=== PATIENT | male | born 1980 | race Two or more races ===

== ENCOUNTER 2022-04-05 19:59 | Emergency (ER) | payer OTHER ==
[~2022-04-05] VITALS: Ht 175.3 cm; Wt 79.5 kg
[2022-04-05] MEDS ORDERED: ALBU8HFA IH (20:23)
[2022-04-05 20:24] VITALS: BP 154/102
[2022-04-05 20:39] LABS: BASOPHILS % (AUTO) 0.5 % (0.0-2.0); EOSINOPHILS % (AUTO) 1.9 % (1.0-6.0); HEMATOCRIT 47.9 % (41-53); HEMOGLOBIN 16.4 g/dL (13.5-17.5); LYMPHOCYTES # (AUTO) 1.8 K/uL (1.0-4.8); LYMPHOCYTES % (AUTO) 26.6 % (22.0-44.0); MEAN CORPUSCULAR HEMOGLOBIN 30.5 pg (26.0-34.0); MEAN CORPUSCULAR HGB CONC 34.2 G/dL (31.0-37.0); MEAN CORPUSCULAR VOLUME 89 fL (80-100); MONOCYTES # (AUTO) 0.6 K/uL (0.1-1.0); MONOCYTES % (AUTO) 8.2 % (2.0-9.0); NEUTROPHILS # (AUTO) 4.3 K/uL (1.8-7.7); NEUTROPHILS % (AUTO) 62.8 % (40.0-70.0); PLATELET COUNT (AUTO) 369 K/uL (150-450); RED BLOOD CELL COUNT(AUTO) 5.37 MIL/uL (4.50-5.90); RED CELL DISTRIBUTION WIDTH 12.2 % (11.5-14.5)
[2022-04-05 20:48] LABS: ANION GAP 4 mmol/L (8-16); CALCIUM, TOTAL 10.1 mg/dL (8.8-10.5); CARBON DIOXIDE 29 mmol/L (22-29); CHLORIDE 102 mmol/L (98-107); CREATININE 1.02 mg/dL (0.60-1.30); GLUCOSE,RANDOM 109 mg/dL (70-110); POTASSIUM 4.8 mmol/L (3.5-5.1); SODIUM SERUM 135 mmol/L (136-145); UREA NITROGEN, BLOOD 16 mg/dL (7-18)
[2022-04-05 20:53] LABS: GLOMERULAR FILTR. RATE CALC > 60 mL/min (>60)
[2022-04-05 20:54] LABS: BILIRUBIN,TOTAL 0.5 mg/dL (0.1-1.0)
[2022-04-05 20:55] LABS: ALANINE AMINOTRANSFERASE 13 U/L (12-78); ALBUMIN 4.5 g/dL (3.4-5.0); ALKALINE PHOSPHATASE 143 U/L (46-116); ASPARTATE AMINOTRANSFERASE 17 U/L (15-37)
== END 2022-04-05 22:23 | disposition home or self-care (01) ==
LOC: EMS 20:02
DX: R07.2 Precordial pain (principal); J45.909 Unspecified asthma, uncomplicated; Z79.899 Other long term (current) drug therapy
CPT/HCPCS: 71045; 80053; 84484; 85025; 93005; 99285; 36415-L1; 36415-TC